=== PATIENT | male | born 2000 ===

== ENCOUNTER 2020-10-12 12:15 | Outpatient (RCR) | payer OTHER, SELFPAY ==
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
[2020-10-05 14:48] VITALS: BMI 23.7
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
--- NOTE | 2020-10-09 14:37 | HO.PHPPROGNO ---
Subjective Subjective Date of Service: 10/16/20 Reason For Visit: depression Interim History: Pt continues to report that PHP is helpful in that he lears from others. He continues to report that medications have been helpful decreasing voices and less nightmares. He reports eating and sleeping well. He denies VH/AH. He denies IS/HI. No behavioral concern. Medication Compliance: Yes Side effects from medications: No Mental Status Exam Mental Status Exam Narrative: Appearance: casually groomed, fair hygiene, in NAD Behavior: calm, cooperative Psychomotor: no agitation or retardation noted Speech: clear, normal rate/rhythm/volume, spontaneous TP: linear TC: no signs of psychosis, feeling better, less anxious Mood: pretty good Affect:constricted but congruent SI:none HI:none AH/VH:none Delusions:none Insight/judgment:fair x 2 Memory/cog: alert, oriented x 3. grossly intact to conversational testing. Diagnostics Vital Signs (24Hr): Body Mass Index 23.7 Assessment & Plan Assessment & Plan (1) Schizoaffective disorder, bipolar type: Status: Acute Code(s): F25.0 - Schizoaffective disorder, bipolar type Assessment and Plan: continue current medications (2) PTSD (post-traumatic stress disorder): Status: Acute Code(s): F43.10 - Post-traumatic stress disorder, unspecified Assessment and Plan: continue current medications Certification I certify that partial hospital treatment is medically necessary due to the symptoms and problems resulting from the patient's mental illness and the failure to treat the patient at the partial hospital level of care would likely result in the patient requiring inpatient psychiatric care which could not be prevented at a less intensive level of care. Greater than 50% of the session was spent on counseling and/or coordination of care Discharge Plan Discharge Attending provider: Garcia Bhatt Medications: New nicotine 14 mg/24 hr patch 24 hour 1 patch transdermal DAILY Qty: 28 RF: 0 Continued olanzapine 20 mg Tablet 20 mg PO BEDTIME 30 Days Qty: 30 RF: 0 prazosin 2 mg Capsule 2 mg PO BEDTIME 30 Days Qty: 30 RF: 0 Telehealth Telehealth Location of provider rendering services: practice address Location of patient: address on file Patient Identification confirmed using: Name, : Yes Telehealth method: video Patient verbally consented to treatment: Yes Patient verbally consented to billing insurance company: Yes Patient informed of any privacy concerns related to visit: Yes Time spent with patient (mins): 30
--- NOTE | 2020-10-09 15:44 | PC.NURSE ---
I called and spoke to pt about schedule, how he's doing in program (well according to him), and aftercare plans. I also spoke to him about making sure he is alone in the room during groups on telehealth, as today there were roommates seem in the background and he declined to go somewhere private when staff asked. He agreed to be alone in group starting tomorrow, and apologized. He also informed me that he is seeming Neli Dsouza (in [place]) over zoom for individual therapy. he is in need of a med provider.
--- NOTE | 2020-10-11 16:04 | PC.NURSE ---
Recieved a call message Fouzia, pt's mother, asking about his attendance and how he's doing in the program. She said she is concnerned because pt is not yet out of bed as of 9:05am, and doesn't seem to be attending program. (Pt was in community meeting at that time and said he awoke at 7am. He has been attending as scheduled).In this message, she said she lives down the street from patient. I then called pt to inform him of this call from his mom, and tell him that I will call her. He said okay, and shared that she is extremely delusional and has schizophrenia. Pt said she believes he is on drugs, that he is not on drugs, and that she is projecting her thoughts about his father onto him, as his father was a drug addict. I attempted to call pt's mother, but was unable to reach her. The number pt gave us, and the number his mother left on the message (2 different numbers) were both wrong numbers.
--- NOTE | 2020-10-13 15:50 | PC.NURSE ---
Pt left after community meeting. At the start first group, he said he has to go to the store to get his medication, and asked if he could do so while in group. I declined his request noting group therapy guidelines and confidentiality rules. Pt expressed ambivalence around whether to stay or go, and staff validated these feelings and his need to get his medication. Pt said he would call Leida Sylvester, playground supervisor if he needs further help. Staff gave him her number, and he left the group. He did not appear to be in distress.
--- NOTE | 2020-10-16 08:19 | PC.NURSE ---
Attempted to call pt to discuss aftercare planning. LM for call back.
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
--- NOTE | 2020-10-16 10:48 | PC.NURSE ---
Pt's mother called and reported she dropped him off at the ER for an evaluation.
--- NOTE | 2020-10-17 10:04 | PC.NURSE ---
Received a message from Miranda with [facility] regarding pt. LM at [phone] this morning to provide email for release of information and to connect regarding pt.
--- NOTE | 2020-10-17 13:41 | PC.NURSE ---
Spoke with Miranda from [facility] regarding pts presentation over the last few days. She reported there is DCF involvement and he has decompensated tremendously over the last week or so. He was currently a section 12 bed search due to his presentation in the ER, including seeing people and talking to people. Discussed his presentation in PHP and the recommendation that he be treated more locally by a facility/clinic. She reported he was in the process of applying for [facility]. Reported pt is discharged from program due to inpatient search.
== END 2020-10-12 23:55 | disposition short-term general hospital (02) ==
LOC: HO.PHPA 12:15
PROVIDERS: Visit Provider Psychiatry & Neurology Psychiatry
DX: F25.0 Schizoaffective disorder, bipolar type (principal); F43.10 Post-traumatic stress disorder, unspecified; Z62.810 Personal history of physical and sexual abuse in childhood
CPT/HCPCS: 90791; 90853